=== PATIENT | female | born 2000 | race Caucasian/White ===

== ENCOUNTER 2023-12-11 23:32 | Emergency (ER) | payer BC, SELFPAY ==
[2023-12-11 23:42] VITALS: BP 150/88
[2023-12-12 00:42] LABS: % Basophils 0.4 % (0-2); % Eosinophils 0.8 % (0-6); % Immature Granulocytes 0.5 % (0-0.5); % Lymphocytes 8.9 % (20.5-51.1); % Monocytes 6.2 % (1.7-9.3); % Neutrophils 83.2 % (42.2-75.2); Absolute Basophils 0.1 10^3/uL (0-0.2); Absolute Eosinophils 0.1 10^3/uL (0-0.7); Absolute Immature Granulocytes 0.1 10^3/uL (0-0.05); Absolute Lymphocytes 1.3 10^3/uL (1.2-3.4); Absolute Monocytes 0.9 10^3/uL (0.1-0.6); Absolute Neutrophils 11.7 10^3/uL (1.4-6.5); Hematocrit 35.9 % (37.0-47.0); Hemoglobin 12.8 g/dL (12.0-16.0); Mean Corp Hgb Conc. 35.7 g/dL (33.0-37.0); Mean Corpuscular Hgb 28.8 pg (27.0-31.0); Mean Corpuscular Volume 80.9 fL (81.0-99.0); Mean Platelet Volume 10.2 fL (7.4-10.4); Nucleated Red Blood Cells % 0 %; Platelet Count 283 10^3/uL (130-400); Red Blood Cell Count 4.44 10^6/uL (4.20-5.40); Red Cell Dist. Width 13.2 % (11.5-14.5); White Blood Cell Count 14.1 10^3/uL (4.8-10.8)
--- NOTE | 2023-12-12 00:46 | ED.GENMED ---
History of Present Illness
<Nohemy Adan MD, Resident - Last Filed: 12/12/23 05:11>
General
Chief Complaint: Fever
Time Seen by Provider: 12/12/23 00:29
History of Present Illness
History of Present Illness:
23 year old female with history of GERD, PCOS presents to the ED with lower abdominal pain, fever, chills that started 1 day ago. Patient states that she had 1 episode of true fever of 101 this evening. Patient states that she has been constipated
for 2 days, prior to this she had 1 episode of diarrhea. Patient also reports that after her first delivery in April 2023 she has had difficulty with bowel movements. The patient experiences difficulty during bowel movements and often observes
blood while wiping. Patient states that she was admitted in the past with gastritis and they told her that
Past History
<Nohemy Adan MD, Resident - Last Filed: 12/12/23 05:11>
Past History
ED Past Medical History: GERD
Phy Exam
<Nohemy Adan MD, Resident - Last Filed: 12/12/23 05:11>
Physical Exam
Physical Exam:
23 year old obese female, in no acute distress, 7 months.
General Physical Exam
General Presentation: no apparent distress
Cardiovascular Exam
Cardiovascular Exam: regular rate/rhythm
Pulmonary Exam
Pulmonary Exam: lungs clear
Gastrointestinal Exam
Gastrointestinal Exam: normal bowel sounds and tender (right and left lower abdominal pain )
Course
<Nohemy Adan MD, Resident - Last Filed: 12/12/23 05:11>
Orders/Labs/Results
Orders:
Orders
12/12/23 00:31
IV Insert/Care/Rem.- Treatment PRN
Test Result ONCE
12/12/23 00:35
Complete Blood Count/With Diff Urgent
Comprehensive Metabolic Panel Urgent
HCG, Serum Qualitative Screen Urgent
Lipase Urgent
12/12/23 01:02
CT Abd/pel Without Iv Or Oral Urgent
Comment:
Reason For Exam: abdominal pain
12/12/23 01:06
COVID-19 Antigen Urgent
Source: Nasal Swab
Influenza A+B Rapid Molecular Urgent
BARBIE Source: Nasal Swab
Specimen Description:
12/12/23 02:08
US Pelvis Only (non-obstetric) Urgent
Comment:
Reason For Exam: lower pelvis pain
12/12/23 02:15
0.9% Sodium Chloride 500 ml [Nss] 500 ml IV BOLUS
Abnormal Lab Results
12/12/23
00:35
WBC 14.1 H 10^3/uL
(4.8-10.8)
Hct 35.9 L %
(37.0-47.0)
MCV 80.9 L fL
(81.0-99.0)
Abs Immat Gran (auto) 0.1 H 10^3/uL
(0-0.05)
Absolute Neuts (auto) 11.7 H 10^3/uL
(1.4-6.5)
Absolute Monos (auto) 0.9 H 10^3/uL
(0.1-0.6)
Neutrophils % 83.2 H %
(42.2-75.2)
Lymphocytes % 8.9 L %
(20.5-51.1)
Glucose 112 H mg/dl
(70-99)
12/12/23 01:01
12/12/23 01:01
Vital Signs
Initial and Last Documented VS:
Initial Vital Signs
Temp Pulse Resp BP Pulse Ox
99.9 F 132 24 150/88 98
12/11/23 23:42 12/11/23 23:42 12/11/23 23:42 12/11/23 23:42 12/11/23 23:42
Last Documented Vital Signs
Temp Pulse Resp BP Pulse Ox
99.4 F 132 24 125/76 96
12/12/23 02:55 12/11/23 23:42 12/11/23 23:42 12/12/23 04:00 12/12/23 04:00
<Addison Hanson, DO - Last Filed: 12/12/23 03:59>
Orders/Labs/Results
Orders:
Orders
12/12/23 00:31
IV Insert/Care/Rem.- Treatment PRN
Test Result ONCE
12/12/23 00:35
Complete Blood Count/With Diff Urgent
Comprehensive Metabolic Panel Urgent
HCG, Serum Qualitative Screen Urgent
Lipase Urgent
12/12/23 01:02
CT Abd/pel Without Iv Or Oral Urgent
Comment:
Reason For Exam: abdominal pain
12/12/23 01:06
COVID-19 Antigen Urgent
Source: Nasal Swab
Influenza A+B Rapid Molecular Urgent
BARBIE Source: Nasal Swab
Specimen Description:
12/12/23 02:08
US Pelvis Only (non-obstetric) Urgent
Comment:
Reason For Exam: lower pelvis pain
12/12/23 02:15
0.9% Sodium Chloride 500 ml [Nss] 500 ml IV BOLUS
Abnormal Lab Results
12/12/23
00:35
WBC 14.1 H 10^3/uL
(4.8-10.8)
Hct 35.9 L %
(37.0-47.0)
MCV 80.9 L fL
(81.0-99.0)
Abs Immat Gran (auto) 0.1 H 10^3/uL
(0-0.05)
Absolute Neuts (auto) 11.7 H 10^3/uL
(1.4-6.5)
Absolute Monos (auto) 0.9 H 10^3/uL
(0.1-0.6)
Neutrophils % 83.2 H %
(42.2-75.2)
Lymphocytes % 8.9 L %
(20.5-51.1)
Glucose 112 H mg/dl
(70-99)
12/12/23 01:01
12/12/23 01:01
Vital Signs
Initial and Last Documented VS:
Initial Vital Signs
Temp Pulse Resp BP Pulse Ox
99.9 F 132 24 150/88 98
12/11/23 23:42 12/11/23 23:42 12/11/23 23:42 12/11/23 23:42 12/11/23 23:42
Last Documented Vital Signs
Temp Pulse Resp BP Pulse Ox
99.4 F 132 24 125/76 96
12/12/23 02:55 12/11/23 23:42 12/11/23 23:42 12/12/23 04:00 12/12/23 04:00
<Nohemy Adan MD, Resident - Last Filed: 12/12/23 05:11>
*Critical Care Note
Total Time (30-74mins, 75-104mins- exclusive of procedures): Not Applicable
<Nohemy Adan MD, Resident - Last Filed: 12/12/23 05:11>
Update Note
Update Note:
Right upper and lower quadrant pain
- Differential diagnosis- cholelithiasis, acute pancreatitis, pelvic inflammatory disease, constipation.
- Ongoing constipation since April 2023. Have noticed blood while wiping.
- Lipase negative ruling out acute pancreatitis.
Ovarian cyst observed on CT scan. Ordered US of abd and pelvis.
Fever with leukocytosis
-
<Addison Hanson DO - Last Filed: 12/12/23 03:59>
Update Note
Update Note:
Right upper and lower quadrant pain
- Differential diagnosis- cholelithiasis, acute pancreatitis, pelvic inflammatory disease, constipation.
- Ongoing constipation since April 2023. Have noticed blood while wiping.
- Lipase negative ruling out acute pancreatitis.
Ovarian cyst observed on CT scan. Ordered US of abd and pelvis.
Fever with leukocytosis
ULTRASOUND PELVIS
COMPARISON: Correlation CT abdomen and pelvis 12/12/2023
IMPRESSION:
Uterus is normal. Endometrial thickness is 4 mm.
Right ovary is normal. Normal Doppler flow.
There is a simple left ovarian cyst measuring 6.4 cm. Normal Doppler flow.
No free fluid in the pelvis.
-
ED Attending Note
<Nohemy Adan MD, Resident - Last Filed: 12/12/23 05:11>
-
Portions of this chart may have been created with voice recognition software.� Occasional wrong word or��sound alike� substitutions may have occurred due to the inherent limitations of voice recognition software.
Discharge Plan
Departure
Patient Disposition: Home (Routine Discharge)
Date of Disposition: 12/12/23
Time of Disposition: 03:56
Patient with high blood pressure during this ER visit?: No
Condition: Good
Discharge Problem:
Ovarian cyst
Instructions: Abdominal Pain, Adult ED, Ovarian Cyst ED
Prescriptions:
New
diclofenac sodium 75 mg tablet,delayed release (DR/EC)
75 mg PO BID Qty: 10 0RF
Referrals:
Lina Humphreys PA-C [Family Provider] -
Activity Restrictions/Additional Instructions:
It was a pleasure meeting you and taking part in your care. We hope for your continued healing and wellness.
Please read discharge instructions in their entirety. However, they are for general education and may not describe your exact diagnosis at discharge. Information on your ER visit and medical conditions were discussed with you along with appropriate
follow up information...
If indicated, please take your medications as instructed and indicated on discharge paperwork.
Please schedule a follow up appointment as directed. Call to schedule an appointment
Please return to the emergency department with ANY change in, persisting, or worsening of symptoms. If any of your symptoms do not improve, or persist, or become more severe within 6-12 hours, please return to the emergency department for further
care.
Please return to the emergency department if you develop a headache, neck pain/stiffness, fever greater than 100.4F, chest pain, shortness of breath, persistent nausea, vomiting, slurred speech, difficulty walking, numbness/tingling, weakness, signs
of infection or any other symptoms that are worrisome to you.
If you have any questions or concerns please do not hesitate to call the Hospital at or E-mail me directly at [email or web address]
Interventions
Interventions:
*Risk Screen - Suicide Last Done: 12/11/23 23:42
*General Assessment Last Done: 12/12/23 00:22
*Neglect/Abuse Screening Last Done: 12/11/23 23:42
*ED COVID-19 Vaccine History Last Done: 12/12/23 00:22
*Nursing Disposition Last Done: 12/12/23 04:27
ED- Neurological Assessment Last Done: 12/12/23 00:22
ED-Skin Assessment Last Done: 12/12/23 00:22
Discharge Date and Time
Discharge Date/Time: 12/12/23 04:26
Print Language: ARABIC
[2023-12-12 00:50] LABS: HCG, Serum Qualitative Screen Negative
[2023-12-12 00:57] LABS: ALT (SGPT) 26 U/L (0-35); AST (SGOT) 26 U/L (14-36); Albumin 4.2 g/dl (3.5-5.0); Alkaline Phosphatase 79 U/L (38-126); Blood Urea Nitrogen 15 mg/dl (7-17); Calcium 9.2 mg/dl (8.4-10.2); Carbon Dioxide 23 mmol/L (22-30); Chloride 102 mmol/L (98-107); Glucose 112 mg/dl (70-99); Lipase 52 U/L (23-300); Potassium 3.8 mmol/L (3.5-5.1); Sodium 135 mmol/L (135-145); Total Bilirubin 0.9 mg/dl (0.2-1.3); Total Protein 7.2 g/dl (6.3-8.2); eGFR > 60.00
[2023-12-12 01:09] VITALS: BP 126/70
[2023-12-12 01:40] LABS: COVID-19 Antigen Negative (Negative)
[2023-12-12 02:00] VITALS: BP 108/81
[2023-12-12] MEDS: NSS 500 IV (02:22)
[2023-12-12 02:29] VITALS: BP 118/76
[2023-12-12 03:17] VITALS: BP 127/81
[2023-12-12 04:00] VITALS: BP 125/76
== END 2023-12-12 04:26 | disposition home or self-care (01) ==
LOC: EMR 23:32
PROVIDERS: EMERGENCY PHYSICIAN Student in an Organized Health Care Education/Training Program; FAMILY PHYSICIAN Physician Assistant
DX: N83.202 Unspecified ovarian cyst, left side (principal); Z11.52 Encounter for screening for COVID-19
CPT/HCPCS: 99285; 74176; 76856; 80053; 83690; 84703; 85025; 87502; 87811